=== PATIENT | female | born 1950 | race Two or more races ===

== ENCOUNTER 2019-01-20 06:55 | Day surgery (SDC) | payer MEDICARE, BC ==
[~2019-01-20 06:55] MED LIST: BALANCED SALT IRRIG SOLN COMB1 500 ML, EPINEPHRINE-PF 1:1000 1 MG IO ONE
[2019-01-20] MEDS ORDERED: LIDOCAINE-MPF 2% 5 ML VIAL MC ONE (06:56)
[2019-01-20] MEDS ORDERED: ONDANSETRON 4 MG/2 ML VIAL IV ONE (06:56)
[2019-01-20] MEDS ORDERED: PROPOFOL 200 MG/20 ML BOTTLE IV ONE (06:56)
[2019-01-20] MEDS ORDERED: IV NORMAL SALINE 1000 ML BAG IV ONE (06:56)
[2019-01-20] MEDS ORDERED: IRR STERIL WATER FOR IRR 1000 ML BOTTLE IR ONE (06:56)
[2019-01-20] MEDS ORDERED: KETOROLAC 0.5% OPHT DROP 3 ML BOTTLE ONE (07:12)
[2019-01-20] MEDS ORDERED: CIPROFLOXACIN 0.3% OPHT DROP 2.5 ML BOTTLE ONE (07:12)
[2019-01-20] MEDS ORDERED: TETRACAINE HCL 0.5% OPHT DROP 2 ML BOTTLE ONE ×2 (07:12→07:14)
[2019-01-20] MEDS ORDERED: PHENYLEPHRINE 2.5% OPHT DROP 2 ML BOTTLE ONE (07:13)
[2019-01-20] MEDS ORDERED: CYCLOPENTOLATE 1% OPHT DROP 2 ML BOTTLE ONE (07:13)
[2019-01-20] MEDS ORDERED: PILOCARPINE 1% OPHT DROP 15 ML BOTTLE ONE (07:14)
[2019-01-20] MEDS ORDERED: LIDOCAINE HCL-MPF 1% 5 ML VIAL ONE (07:14)
[2019-01-20] MEDS ORDERED: NEO/POLYMYX B/DEXAME OPHT OINT 3.5 GM TUBE ONE (07:14)
[2019-01-20] MEDS ORDERED: HYALURONATE SODIUM 8.5 MG/0.85 ML DISP.SYRIN ONE (07:15)
[2019-01-20] MEDS ORDERED: BALANCED SALT IRRIG SOLN COMB2 15 ML IRRIG.SOLN ONE (07:15)
[2019-01-20] MEDS ORDERED: EPINEPHRINE 1 MG/1 ML AMP ONE (07:15)
[2019-01-20] MEDS ORDERED: BALANCED SALT IRRIG SOLN COMB1 0 ML ONE (07:19)
[2019-01-20] MEDS ORDERED: BUPIVACAINE 0.25% 30 ML VIAL ONE (07:20)
[2019-01-20] MEDS ORDERED: FENTANYL CITRATE 100 MCG/2 ML AMPUL ONE (07:38)
[2019-01-20] MEDS ORDERED: MIDAZOLAM HCL 2 MG/2 ML VIAL ONE (07:38)
== END 2019-01-20 10:40 | disposition home or self-care (01) ==
LOC: DS 06:55
PROVIDERS: ATTEND Dermatology MOHS-Micrographic Surgery
DX: E11.36 Type 2 diabetes mellitus with diabetic cataract (principal); E78.5 Hyperlipidemia, unspecified; K21.9 Gastro-esophageal reflux disease without esophagitis; Z98.890 Other specified postprocedural states; I10 Essential (primary) hypertension; Z90.710 Acquired absence of both cervix and uterus; Z82.49 Family history of ischemic heart disease and other diseases of the circulatory system; E66.3 Overweight
CPT/HCPCS: 66984; 71045; 82962; J0171 ×2; J2250; J2405; J3010; J3490 ×3; J7321; V2632; A4217; A4663; J3590; J7030